=== PATIENT | female | born 1985 | race Caucasian/White ===

== ENCOUNTER 2020-01-07 18:48 | Inpatient (IN) | payer BC ==
[2020-01-07] MEDS ORDERED: Water For Irrigation,Sterile 1,000 ML Container IRR PRN (20:10)
[2020-01-07] MEDS ORDERED: Misoprostol 200 MCG Tab PO PRN (20:10)
[2020-01-07] MEDS ORDERED: Butorphanol 1 MG/ML SDV IVPUSH PRN (20:10)
[2020-01-07] MEDS ORDERED: Ondansetron 4 MG/2 ML SDV IVPUSH PRN (20:10)
[2020-01-07] MEDS ORDERED: Lidocaine 1% 50 ML MDV INJECT PRN (20:10)
[2020-01-07] MEDS ORDERED: Sodium Chloride 0.9% 10 ML SDV IV PRN (20:10)
[2020-01-07] MEDS ORDERED: Methylergonovine 0.2 MG/1 ML Amp IM PRN (20:10)
[2020-01-07] MEDS ORDERED: Carboprost Tromethamine 250 MCG/1 ML Amp IM PRN (20:10)
[2020-01-07] MEDS ORDERED: Tranexamic Acid 1,000 MG in Sodium Chloride 0.9% 100 ML IV PRN (20:10)
[2020-01-07] MEDS ORDERED: Terbutaline 1 MG/ML SDV SUBCUT PRN (20:10)
[2020-01-07] MEDS ORDERED: Nalbuphine 10 MG/1 ML Vial IVPUSH PRN (20:10)
[2020-01-07] MEDS ORDERED: Misoprostol 25 MCG (1/4 of 100 MCG) Tab VAG PRN ×2 (20:10)
[2020-01-07] MEDS ORDERED: Sodium Chloride 0.9% 10 ML Syringe FLUSH PRN (20:10)
[2020-01-07] MEDS ORDERED: Ampicillin 2 GM in Sodium Chloride 0.9% 100 ML IV ONE (20:10)
[2020-01-07] MEDS ORDERED: Sodium Chloride 0.9% 2.5 ML Syringe FLUSH PRN (20:10)
[2020-01-07] MEDS ORDERED: Oxytocin/0.9 % Sodium Chloride 30 UNIT/500 ML BAG IV SCH ×2 (20:15)
[2020-01-07] MEDS: Lactated Ringers 1,000 ML IV SCH (20:40)
[2020-01-08] MEDS: Ampicillin 1 GM in Sodium Chloride 0.9% 50 ML IV SCH ×5 (00:35→16:50)
--- NOTE | 2020-01-08 08:03 | PCM.PN ---
<Ni Del Valle - Last Filed: 01/08/20 08:27> - General Info Date of Service: 01/08/20 Functional Status: Reports: Pain Controlled - Review of Systems General: Reports: No Symptoms HEENT: Reports: No Symptoms Pulmonary: Reports: No Symptoms Cardiovascular: Reports: No Symptoms Gastrointestinal: Reports: No Symptoms Genitourinary: Reports: No Symptoms Musculoskeletal: Reports: No Symptoms Skin: Reports: No Symptoms Neurological: Reports: No Symptoms Psychiatric: Reports: No Symptoms - Patient Data Weight - Most Recent: 86.908 kg I&O - Last 24 Hours: Intake & Output 01/07/20 01/08/20 01/08/20 22:59 06:59 14:59 Intake Total 125 100 Balance 125 100 Lab Results Last 24 Hours: Laboratory Results - last 24 hr 01/07/20 01/07/20 01/07/20 Range/Units 19:45 19:45 19:45 WBC 11.63 H (4.0-11.0) K/uL RBC 3.79 L (4.30-5.90) M/uL Hgb 9.0 L (12.0-16.0) g/dL Hct 29.0 L (36.0-46.0) % MCV 76.5 L (80.0-98.0) fL MCH 23.7 L (27.0-32.0) pg MCHC 31.0 (31.0-37.0) g/dL RDW Std Deviation 45.0 (28.0-62.0) fl RDW Coeff of Jaen Claude 16 H (11.0-15.0) % Plt Count 325 (150-400) K/uL MPV 10.30 (7.40-12.00) fL Nucleated RBC % 0.0 /100WBC Nucleated RBCs # 0 K/uL COVID-19 ([facility]) NEGATIVE (NEGATIVE) Blood Type A POSITIVE Antibody Screen NEGATIVE Med Orders - Current: Current Medications Butorphanol Tartrate (Stadol) 1 mg IVPUSH Q1H PRN PRN Reason: Pain Carboprost Tromethamine (Hemabate Ds) 250 mcg IM ASDIRECTED PRN PRN Reason: Post Hemorrhage Oxytocin/Sodium Chloride (Oxytocin 30 Unit/500 Ml-Ns) 30 unit in 500 mls @ 999 mls/hr IV TITRATE ELINA Tranexamic Acid 1,000 mg/ (Sodium Chloride) 110 mls @ 660 mls/hr IV ONETIME PRN PRN Reason: Bleeding Oxytocin/Sodium Chloride (Oxytocin 30 Unit/500 Ml-Ns) 30 unit in 500 mls @ 2 mls/hr IV TITRATE [facility]; Protocol Last Titration: 01/08/20 07:50 Dose: 4 munits/min, 4 mls/hr Documented by: Lactated Ringer's (Ringers, Lactated) 1,000 mls @ 150 mls/hr IV ASDIRECTED [facility] Last Infusion: 01/08/20 04:35 Dose: 150 mls/hr Documented by: Ampicillin Sodium 1 gm/ Sodium (Chloride) 50 mls @ 100 mls/hr IV Q4H [facility] Last Admin: 01/08/20 04:35 Dose: 100 mls/hr Documented by: Lidocaine HCl (Xylocaine 1%) 50 ml INJECT ONETIME PRN PRN Reason: Laceration repair Methylergonovine Maleate (Methergine) 0.2 mg IM ASDIRECTED PRN PRN Reason: Post Hemorrhage Misoprostol (Cytotec) 200 mcg PO ONETIME PRN PRN Reason: Post Hemorrhage Misoprostol (Cytotec) 25 mcg VAG ONETIME PRN PRN Reason: Cervical Ripening Last Admin: 01/07/20 20:40 Dose: 25 mcg Documented by: Misoprostol (Cytotec) 25 mcg VAG Q4H PRN PRN Reason: Cervical Ripening Last Admin: 01/08/20 00:34 Dose: 25 mcg Documented by: Nalbuphine HCl (Nubain) 10 mg IVPUSH Q1H PRN PRN Reason: Pain (severe 7-10) Ondansetron HCl (Zofran) 4 mg IVPUSH Q4H PRN PRN Reason: Nausea/Vomiting Sodium Chloride (Saline Flush) 10 ml FLUSH ASDIRECTED PRN PRN Reason: Keep Vein Open Sodium Chloride (Saline Flush) 2.5 ml FLUSH ASDIRECTED PRN PRN Reason: Keep Vein Open Sodium Chloride (Normal Saline) 10 ml IV ASDIRECTED PRN PRN Reason: IV Use Sterile Water (Sterile Water For Irrigation) 1,000 ml IRR ASDIRECTED PRN PRN Reason: delivery Terbutaline Sulfate (Brethine) 0.25 mg SUBCUT ASDIRECTED PRN PRN Reason: Tacysystole Discontinued Medications Ampicillin Sodium 2 gm/ Sodium (Chloride) 100 mls @ 200 mls/hr IV ONETIME ONE Stop: 01/07/20 20:39 Last Admin: 01/07/20 20:40 Dose: 200 mls/hr Documented by: - Exam General: Alert, Oriented, Cooperative HEENT: Pupils Equal, Mucous Membr. Moist/[place] Lungs: Clear to Auscultation, Normal Respiratory Effort Cardiovascular: Regular Rate, Regular Rhythm, No Murmurs GI/Abdominal Exam: No Organomegaly, No Abnormal Bruit (Female) Exam: Deferred Extremities: Normal Capillary Refill Peripheral Pulses: 2+: Radial (L), Radial (R), Posterior Tibial (L), Posterior Tibial (R), Dorsalis Pedis (L), Dorsalis Pedis (R) Skin: Warm, Intact Neurological: No New Focal Deficit Psy/Mental Status: Alert, Normal Affect, Normal Mood Physical Findings Comments:: Patient did receive Ampicillin for GBS and was started on Cytotec last night. Oxytocin was started this AM. Patient is making progress. At 5 AM this morning, she was 3 cm dilated, 80% effaced with fetus at -2 station. heart tones have been at the 140s-150s. No variable or late decelerations noted. Sepsis Event Note - Evaluation Sepsis Screening Result: No Definite Risk - Plan Plan:: Continue oxytocin Continue to monitor labor progression Patient was seen and evaluated by medical student (NI DEL VALLE). I appreciate the opportunity to be involved in the care of this patient. <Neda Menezes - Last Filed: 01/08/20 09:59> - Patient Data I&O - Last 24 Hours: Intake & Output 01/07/20 01/08/20 01/08/20 22:59 06:59 14:59 Intake Total 125 100 Balance 125 100 Lab Results Last 24 Hours: Laboratory Results - last 24 hr 01/07/20 01/07/20 01/07/20 Range/Units 19:45 19:45 19:45 WBC 11.63 H (4.0-11.0) K/uL RBC 3.79 L (4.30-5.90) M/uL Hgb 9.0 L (12.0-16.0) g/dL Hct 29.0 L (36.0-46.0) % MCV 76.5 L (80.0-98.0) fL MCH 23.7 L (27.0-32.0) pg MCHC 31.0 (31.0-37.0) g/dL RDW Std Deviation 45.0 (28.0-62.0) fl RDW Coeff of Jean Claude 16 H (11.0-15.0) % Plt Count 325 (150-400) K/uL MPV 10.30 (7.40-12.00) fL Nucleated RBC % 0.0 /100WBC Nucleated RBCs # 0 K/uL COVID-19 ([facility]) NEGATIVE (NEGATIVE) Blood Type A POSITIVE Antibody Screen NEGATIVE Med Orders - Current: Current Medications Butorphanol Tartrate (Stadol) 1 mg IVPUSH Q1H PRN PRN Reason: Pain Carboprost Tromethamine (Hemabate Ds) 250 mcg IM ASDIRECTED PRN PRN Reason: Post Hemorrhage Oxytocin/Sodium Chloride (Oxytocin 30 Unit/500 Ml-Ns) 30 unit in 500 mls @ 999 mls/hr IV TITRATE ELINA Tranexamic Acid 1,000 mg/ (Sodium Chloride) 110 mls @ 660 mls/hr IV ONETIME PRN PRN Reason: Bleeding Oxytocin/Sodium Chloride (Oxytocin 30 Unit/500 Ml-Ns) 30 unit in 500 mls @ 2 mls/hr IV TITRATE ELINA; Protocol Last Titration: 01/08/20 08:50 Dose: 6 munits/min, 6 mls/hr Documented by: Lactated Ringer's (Ringers, Lactated) 1,000 mls @ 150 mls/hr IV ASDIRECTED ELINA Last Infusion: 01/08/20 04:35 Dose: 150 mls/hr Documented by: Ampicillin Sodium 1 gm/ Sodium (Chloride) 50 mls @ 100 mls/hr IV Q4H ELINA Last Admin: 01/08/20 08:45 Dose: 100 mls/hr Documented by: Lidocaine HCl (Xylocaine 1%) 50 ml INJECT ONETIME PRN PRN Reason: Laceration repair Methylergonovine Maleate (Methergine) 0.2 mg IM ASDIRECTED PRN PRN Reason: Post Hemorrhage Misoprostol (Cytotec) 200 mcg PO ONETIME PRN PRN Reason: Post Hemorrhage Misoprostol (Cytotec) 25 mcg VAG ONETIME PRN PRN Reason: Cervical Ripening Last Admin: 01/07/20 20:40 Dose: 25 mcg Documented by: Misoprostol (Cytotec) 25 mcg VAG Q4H PRN PRN Reason: Cervical Ripening Last Admin: 01/08/20 00:34 Dose: 25 mcg Documented by: Nalbuphine HCl (Nubain) 10 mg IVPUSH Q1H PRN PRN Reason: Pain (severe 7-10) Ondansetron HCl (Zofran) 4 mg IVPUSH Q4H PRN PRN Reason: Nausea/Vomiting Sodium Chloride (Saline Flush) 10 ml FLUSH ASDIRECTED PRN PRN Reason: Keep Vein Open Sodium Chloride (Saline Flush) 2.5 ml FLUSH ASDIRECTED PRN PRN Reason: Keep Vein Open Sodium Chloride (Normal Saline) 10 ml IV ASDIRECTED PRN PRN Reason: IV Use Sterile Water (Sterile Water For Irrigation) 1,000 ml IRR ASDIRECTED PRN PRN Reason: delivery Terbutaline Sulfate (Brethine) 0.25 mg SUBCUT ASDIRECTED PRN PRN Reason: Tacysystole Discontinued Medications Ampicillin Sodium 2 gm/ Sodium (Chloride) 100 mls @ 200 mls/hr IV ONETIME ONE Stop: 01/07/20 20:39 Last Admin: 01/07/20 20:40 Dose: 200 mls/hr Documented by: - Problem List Review Problem List Initiated/Reviewed/Updated: Yes - My Orders Last 24 Hours: My Active Orders 01/07/20 Dinner Clear Liquid Diet [DIET] 01/07/20 19:45 RPR (SYPHILIS SERO) W/ RFLX [REF] Routine 01/07/20 20:10 Patient Status [ADT] Routine Bedrest Bathroom Privileges [RC] ASDIRECTED Bedrest Bathroom Privileges [RC] ASDIRECTED Communication Order [RC] ASDIRECTED Communication Order [RC] ASDIRECTED Communication Order [RC] ASDIRECTED Heart Tones [RC] CONTINUOUS Non Stress Test [RC] PER UNIT ROUTINE May Shower [RC] ASDIRECTED Notify Provider [RC] PRN Notify Provider [RC] PRN Notify Provider [RC] PRN Notify Provider [RC] STAT Oxygen Therapy [RC] ASDIRECTED Vaginal Exam [RC] PRN Vaginal Exam [RC] PRN Vital Signs [RC] PER UNIT ROUTINE Vital Signs [RC] PER UNIT ROUTINE Butorphanol [Stadol] 1 mg IVPUSH Q1H PRN Carboprost Tromethamine [Hemabate DS] 250 mcg IM ASDIRECTED PRN Lidocaine 1% [Xylocaine 1%] 50 ml INJECT ONETIME PRN Methylergonovine [Methergine] 0.2 mg IM ASDIRECTED PRN Nalbuphine [Nubain] 10 mg IVPUSH Q1H PRN Ondansetron [Zofran] 4 mg IVPUSH Q4H PRN Sodium Chloride 0.9% [Normal Saline] 10 ml IV ASDIRECTED PRN Sodium Chloride 0.9% [Saline Flush] 10 ml FLUSH ASDIRECTED PRN Sodium Chloride 0.9% [Saline Flush] 2.5 ml FLUSH ASDIRECTED PRN Terbutaline [Brethine] 0.25 mg SUBCUT ASDIRECTED PRN Tranexamic Acid [Cyklokapron] 1,000 mg Sodium Chloride 0.9% [Normal Saline] 100 ml IV ONETIME Water For Irrigation,Sterile [Sterile Water for Irrigation] 1,000 ml IRR ASDIRECTED PRN miSOPROStoL [Cytotec] 200 mcg PO ONETIME PRN miSOPROStoL [Cytotec] 25 mcg VAG ONETIME PRN miSOPROStoL [Cytotec] 25 mcg VAG Q4H PRN Scalp Electrode [WOMSER] Per Unit Routine Peripheral IV Insertion Adult [OM.PC] Routine Resuscitation Status Routine 01/07/20 20:15 Lactated Ringers [Ringers, Lactated] 1,000 ml IV ASDIRECTED Oxytocin/0.9 % Sodium Chloride [Oxytocin 30 Unit/500 ML-NS] 30 unit in 500 ml IV TITRATE Oxytocin/0.9 % Sodium Chloride [Oxytocin 30 Unit/500 ML-NS] 30 unit in 500 ml IV TITRATE Medication Administration Instruction [OM.PC] Q3H
[2020-01-08] MEDS ORDERED: Bupivicaine/fentaNYL/NS 250 ML ONE (10:14)
[2020-01-08] MEDS: Lactated Ringers 1,000 ML IV SCH ×2 (10:35→11:33)
[2020-01-08] MEDS ORDERED: ePHEDrine 50 MG/ML SDV ONE ×2 (10:53→18:27)
[2020-01-08] MEDS ORDERED: Sodium Chloride 0.9% 20 ML ONE ×2 (10:53→17:45)
--- NOTE | 2020-01-08 11:11 | PCM.PREANE ---
Preanesthetic Assessment - Anesthesia/Transfusion/Family Hx Anesthesia History: No Prior Anesthesia Family History of Anesthesia Reaction: No Transfusion History: No Prior Transfusion(s) Additional History: Patient states she has Raynauds because her fingers are always blue but she has never been diagnosed with it. - Review of Systems General: No Symptoms Pulmonary: No Symptoms Cardiovascular: No Symptoms Gastrointestinal: No Symptoms Neurological: No Symptoms Other: Reports: None - Physical Assessment Height: 1.65 m Weight: 86.908 kg ASA Class: 2 Mental Status: Alert & Oriented x3 Dentition: Reports: Normal Dentition ROM/Head Extension: Full - Lab Values: Laboratory Last Values WBC 11.63 K/uL (4.0-11.0) H 01/07/20 19:45 RBC 3.79 M/uL (4.30-5.90) L 01/07/20 19:45 Hgb 9.0 g/dL (12.0-16.0) L 01/07/20 19:45 Hct 29.0 % (36.0-46.0) L 01/07/20 19:45 MCV 76.5 fL (80.0-98.0) L 01/07/20 19:45 MCH 23.7 pg (27.0-32.0) L 01/07/20 19:45 MCHC 31.0 g/dL (31.0-37.0) 01/07/20 19:45 RDW Std Deviation 45.0 fl (28.0-62.0) 01/07/20 19:45 RDW Coeff of Jean Claude 16 % (11.0-15.0) H 01/07/20 19:45 Plt Count 325 K/uL (150-400) 01/07/20 19:45 MPV 10.30 fL (7.40-12.00) 01/07/20 19:45 Nucleated RBC % 0.0 /100WBC 01/07/20 19:45 Nucleated RBCs # 0 K/uL 01/07/20 19:45 COVID-19 ([facility]) NEGATIVE (NEGATIVE) 01/07/20 19:45 Blood Type A POSITIVE 01/07/20 19:45 Antibody Screen NEGATIVE 01/07/20 19:45 - Allergies Allergies/Adverse Reactions: Allergies Allergy/AdvReac Type Severity Reaction Status Date / Time No Known Allergies Allergy Verified 11/05/15 21:19 - Acknowledgements Anesthesia Type Planned: Epidural Pt an Appropriate Candidate for the Planned Anesthesia: Yes Alternatives and Risks of Anesthesia Discussed w Pt/Guardian: Yes Pt/Guardian Understands and Agrees with Anesthesia Plan: Yes PreAnesthesia Questionnaire - Past Health History Medical/Surgical History: Denies Medical/Surgical History ACUPRESSURE THERAPIST History: Reports: , Other (See Below) Other OB/BYN History: Hx of 28 week Intrauterine Demise Neurological History: Reports: Migraines Other Neuro History: Last Migraine one month ago- took tylenol, before pregancy occasional migraine controlled with Excedrine Migraine - Past Surgical History Neurological Surgical History: Reports: None - SUBSTANCE USE Smoking Status *Q: Never Smoker Tobacco Use Within Last Twelve Months: No Recreational Drug Use History: No - HOME MEDS Home Medications: Home Meds Pnv No.95/Ferrous Fum/Folic AC [ Tablet] 1 each PO DAILY 01/07/20 [History] - CURRENT (IN HOUSE) MEDS Current Meds: Current Medications Butorphanol Tartrate (Stadol) 1 mg IVPUSH Q1H PRN PRN Reason: Pain Last Admin: 01/08/20 10:00 Dose: 1 mg Documented by: Carboprost Tromethamine (Hemabate Ds) 250 mcg IM ASDIRECTED PRN PRN Reason: Post Hemorrhage Oxytocin/Sodium Chloride (Oxytocin 30 Unit/500 Ml-Ns) 30 unit in 500 mls @ 999 mls/hr IV TITRATE ELINA Tranexamic Acid 1,000 mg/ (Sodium Chloride) 110 mls @ 660 mls/hr IV ONETIME PRN PRN Reason: Bleeding Oxytocin/Sodium Chloride (Oxytocin 30 Unit/500 Ml-Ns) 30 unit in 500 mls @ 2 mls/hr IV TITRATE ELINA; Protocol Last Titration: 01/08/20 08:50 Dose: 6 munits/min, 6 mls/hr Documented by: Lactated Ringer's (Ringers, Lactated) 1,000 mls @ 150 mls/hr IV ASDIRECTED ELINA Last Admin: 01/08/20 10:35 Dose: 150 mls/hr Documented by: Ampicillin Sodium 1 gm/ Sodium (Chloride) 50 mls @ 100 mls/hr IV Q4H ELINA Last Admin: 01/08/20 08:45 Dose: 100 mls/hr Documented by: Lidocaine HCl (Xylocaine 1%) 50 ml INJECT ONETIME PRN PRN Reason: Laceration repair Methylergonovine Maleate (Methergine) 0.2 mg IM ASDIRECTED PRN PRN Reason: Post Hemorrhage Misoprostol (Cytotec) 200 mcg PO ONETIME PRN PRN Reason: Post Hemorrhage Misoprostol (Cytotec) 25 mcg VAG ONETIME PRN PRN Reason: Cervical Ripening Last Admin: 01/07/20 20:40 Dose: 25 mcg Documented by: Misoprostol (Cytotec) 25 mcg VAG Q4H PRN PRN Reason: Cervical Ripening Last Admin: 01/08/20 00:34 Dose: 25 mcg Documented by: Nalbuphine HCl (Nubain) 10 mg IVPUSH Q1H PRN PRN Reason: Pain (severe 7-10) Ondansetron HCl (Zofran) 4 mg IVPUSH Q4H PRN PRN Reason: Nausea/Vomiting Sodium Chloride (Saline Flush) 10 ml FLUSH ASDIRECTED PRN PRN Reason: Keep Vein Open Sodium Chloride (Saline Flush) 2.5 ml FLUSH ASDIRECTED PRN PRN Reason: Keep Vein Open Sodium Chloride (Normal Saline) 10 ml IV ASDIRECTED PRN PRN Reason: IV Use Sterile Water (Sterile Water For Irrigation) 1,000 ml IRR ASDIRECTED PRN PRN Reason: delivery Terbutaline Sulfate (Brethine) 0.25 mg SUBCUT ASDIRECTED PRN PRN Reason: Tacysystole Discontinued Medications Ephedrine Sulfate (Ephedrine Sulfate) Confirm Administered Dose 50 mg .ROUTE .STK-MED ONE Stop: 01/08/20 10:54 Ampicillin Sodium 2 gm/ Sodium (Chloride) 100 mls @ 200 mls/hr IV ONETIME ONE Stop: 01/07/20 20:39 Last Admin: 01/07/20 20:40 Dose: 200 mls/hr Documented by: Fentanyl/Bupivacaine HCl (Fentanyl/Bupivacaine/Ns 2 Mcg-0.125% 250 Ml) Confirm Administered Dose 250 mls @ as directed .ROUTE .STK-MED ONE Stop: 01/08/20 10:15 Sodium Chloride (Normal Saline) Confirm Administered Dose 20 mls @ as directed .ROUTE .STK-MED ONE Stop: 01/08/20 10:54
[2020-01-08] MEDS ORDERED: ceFAZolin 2 GM in Premix Bag 1 BAG IV ONE (17:33)
[2020-01-08] MEDS ORDERED: Citric Acid/Sodium Citrate Solution 30 ML Cup PO ONE (17:33)
[2020-01-08] MEDS ORDERED: Ondansetron 4 MG/2 ML SDV ONE (17:41)
[2020-01-08] MEDS ORDERED: Oxytocin 10 Units/1 ML SDV ONE (17:45)
[2020-01-08] MEDS ORDERED: Morphine PF 10 MG/10 ML SDV ONE (18:02)
[2020-01-08] MEDS ORDERED: Nalbuphine 10 MG/1 ML Vial IVPUSH PRN (18:30)
[2020-01-08] MEDS ORDERED: fentaNYL 100 MCG/2 ML SDV IVPUSH PRN (18:30)
[2020-01-08] MEDS ORDERED: Acetaminophen/oxyCODONE 325-5 MG Tab PO PRN ×2 (18:30→19:02)
--- NOTE | 2020-01-08 19:00 | PCM.OPNOTE ---
- General Post-Op/Procedure Note Date of Surgery/Procedure: 01/08/20 Operative Procedure(s): Primary LTCS Findings: Viable female AGPARS 8, 9 weight 7 lb 9 oz. Delivery intact placenta with 3V cord Pre Op Diagnosis: 39 weeks IUP. Arrest of descent Post-Op Diagnosis: Same Anesthesia Technique: Epidural Primary Surgeon: Neda Menezes Mushroom Packer: Alonzo Del Valle Fluid Replacement, Intraop: 800 EBL in mLs: 600 Complications: None known Condition: Stable Free Text/Narrative:: Intake & Output 01/08/20 01/08/20 01/08/20 06:59 14:59 22:59 Intake Total 100 Balance 100
[2020-01-08] MEDS ORDERED: diphenhydrAMINE 50 MG/ML SDV IVPUSH PRN (19:02)
[2020-01-08] MEDS ORDERED: Oxytocin 10 Units/1 ML SDV IM PRN (19:02)
[2020-01-08] MEDS ORDERED: Bisacodyl 10 MG Supp RECTAL PRN (19:02)
[2020-01-08] MEDS ORDERED: Lanolin 100% Cream 7 GM Tube TOP PRN (19:02)
[2020-01-08] MEDS ORDERED: Tranexamic Acid 1,000 MG in Sodium Chloride 0.9% 100 ML IV PRN (19:02)
[2020-01-08] MEDS ORDERED: Misoprostol 200 MCG Tab RECTAL PRN (19:02)
[2020-01-08] MEDS ORDERED: Methylergonovine 0.2 MG/1 ML Amp IM PRN (19:02)
[2020-01-08] MEDS ORDERED: Ondansetron 4 MG/2 ML SDV IVPUSH PRN (19:02)
[2020-01-08] MEDS ORDERED: Lactated Ringers 1,000 ML IV SCH (19:15)
[2020-01-08] MEDS ORDERED: ceFAZolin 1 GM Vial ONE (19:20)
--- NOTE | 2020-01-08 19:38 | PCM.POSTAN ---
POST ANESTHESIA ASSESSMENT - MENTAL STATUS Mental Status: Alert, Oriented - RESPIRATORY Respiratory Status: Respiratory Rate WNL, Airway Patent, O2 Saturation Stable - CARDIOVASCULAR CV Status: Pulse Rate WNL, Blood Pressure Stable - GASTROINTESTINAL GI Status: No Symptoms - PAIN Pain Score: 0 - POST OP HYDRATION Hydration Status: Adequate & Stable - OBSERVATIONS Free Text/Narrative:: Patient states pain is a zero unless they are rubbing on her uterus
[2020-01-08] MEDS: Docusate Sodium 100 MG Cap PO SCH (20:59)
--- NOTE | 2020-01-08 21:44 | OR ---
SURGEON: Neda Menezes M.D. DATE OF PROCEDURE: 01/08/2020 PREOPERATIVE DIAGNOSES: 1. A 39-week intrauterine . 2. Arrest of descent. POSTOPERATIVE DIAGNOSES: 1. A 39-week intrauterine . 2. Arrest of descent. PROCEDURE: Primary low transverse section. PRIMARY SURGEON: Neda Menezes MD COIL SPRING ASSEMBLER: Alonzo Smith, MS4 ANESTHESIA: Epidural. ESTIMATED BLOOD LOSS: 600 mL. FLUIDS: 800 mL of crystalloid in the OR. FINDINGS: Viable female, score of 8 at one minute and 9 at five minutes, weight of 7 pounds 9 ounces. Delivery, intact placenta, 3-vessel cord. Normal-appearing pelvis. DISPOSITION: to nursery, mom in LDRP, stable. PROCEDURE DETAILS: Mel is a 34-year-old, G2, P 0-1-0-0, at 39 weeks' gestational age, who presented for a scheduled induction of labor due to advanced maternal age and history of a 28-week demise. Risks of induction have been discussed with her. She responded nicely to Cytotec ripening. The following day, she was found to be 3 cm and initiated on Pitocin augmentation. She is group B beta strep positive and received ampicillin prophylaxis. Shortly after 8 a.m. on the morning of 01/08/2020, she underwent amniotomy, clear fluid was returned. She began to progress more rapidly thereafter and was found to be approximately 6 cm within 2 hours. Underwent regional anesthesia in the form of epidural, became more comfortable. Shortly before 1 p.m. was found to be complete, 100% effaced, minus 1 station. She was allowed to continue to labor over the next 1 to 2 hours. At that time, began pushing efforts and initially pushed readily to a 0 station, but thereafter made no further progress. She spent another hour and a half, almost 2 hours, pushing with no progress past the 0 station. At that time, I assessed the patient, she seems to have adequate pushing efforts and fetus in OA position, but there was just no descent. Therefore, discussion with Mel and her significant other including proceeding with a delivery for arrest of descent. They are in agreement with proceeding with delivery. Risks of procedure have been discussed with her including infection; bleeding; possible trauma to the surrounding bowel, bladder, ureters; in case of excessive blood loss, need for blood product transfusion; in rare lifesaving circumstances, need for hysterectomy; risk for thromboembolic event; risk of anesthesia. Proper consent obtained. The patient was taken to the operating room where she underwent dosing of her epidural, was placed in dorsal supine position with leftward tilt. SCDs to lower extremity, [place] to gravity. Was prepped and draped in usual sterile fashion. Anesthesia was tested, found to be adequate. She received Ancef prophylactically. Time-out was performed. A Pfannenstiel skin incision was now created, carried down to level of the rectus fascia, which was incised in midline, lateralized on either side sharply and bluntly. Superior aspect of the fascia was tented upward, dissected sharply and bluntly away from underlying muscle. In a similar aspect, this performed with the inferior aspect of the fascia. Rectus muscles were now in midline. Peritoneum was entered. Rectus muscles and peritoneum were now lateralized. Uterine position, position palpated. Self-retaining retractor now gently placed. Uterovesical reflection was visualized. Bladder flap was created sharply and bluntly. Bladder was mobilized away from lower uterine segment. Low transverse hysterotomy was now performed. Uterine cavity was entered with blunt-ended scalpel. Hysterotomy was lateralized bluntly. Infant's head was flexed and delivered from the pelvis. Fundal pressure was applied. The head was delivered followed by anterior shoulder, posterior shoulder, and remainder of the body without difficulty. A loose nuchal cord x1 was reduced manually. 's oropharynx and nares were bulb suctioned. Cord was clamped x2 and cut. Infant was handed off to attending medical technicians and nursery staff. Cord arterial, cord venous, cord blood sampling was obtained. The placenta was now delivered. Uterine cavity was cleared of all clot and debris. Hysterotomy was repaired using 3-0 Vicryl in continuous running locked fashion followed by re-imbricating layer. Area of extension was also repaired along the inferior lip of the lower uterine segment with a 0 Vicryl in continuous running locked fashion. Posterior aspect of the uterus was inspected. No defects or hematoma was to found be forming. Region was well irrigated, suction dried. Colonic gutters were cleared of all clot and debris, well irrigated, suction dried. Hysterotomy once again inspected, found to be hemostatic. Self-retaining retractor was gently removed. Bladder blade retractor was now placed and hysterotomy once again inspected. Any areas of serosal oozing were cauterized. Hysterotomy once again inspected, found to be hemostatic. Rectus muscles and peritoneum were now reapproximated using 0 Vicryl with inverted mattress suture technique. Anterior aspect of the muscle, posterior aspect of the fascia closely inspected. Any areas of oozing were cauterized. The fascia was reapproximated using 0 Vicryl in continuous running fashion, beginning laterally on either side and meeting in the midline. Subcutaneous tissue was well irrigated, suction dried. Any areas of oozing were cauterized. Skin edges were reapproximated using 3-0 Vicryl in subcuticular fashion on a Chi needle. Half-inch Steri-Strips and Mastisol were now placed. Uterus remained firm. Sponge, instrument, and needle count was correct x2. The patient tolerated the procedure well overall. She will go to LDRP in stable condition, infant to nursery. GLADYS / BOBBY /[id number] ARNALDO
[2020-01-09] MEDS: Simethicone 80 MG Tab.Chew PO SCH ×5 (00:24→23:32)
[2020-01-09] MEDS: Ketorolac 30 MG/ML SDV IVPUSH SCH ×4 (01:08→21:29)
--- NOTE | 2020-01-09 06:50 | PCM.PNPP ---
<Alonzo Del Valle - Last Filed: 01/09/20 06:44> - General Info Date of Service: 01/09/20 Functional Status: Reports: Pain Controlled, Ambulating - Review of Systems General: Reports: No Symptoms HEENT: Reports: No Symptoms Pulmonary: Reports: No Symptoms Cardiovascular: Reports: No Symptoms Gastrointestinal: Reports: No Symptoms Genitourinary: Reports: No Symptoms Musculoskeletal: Reports: No Symptoms Skin: Reports: No Symptoms Neurological: Reports: No Symptoms Psychiatric: Reports: No Symptoms - General Info Date of Service: 01/09/20 - Patient Data Vital Signs - Most Recent: Last Vital Signs Temp 36.8 C 01/09/20 04:03 Pulse 102 H 01/09/20 06:00 Resp 15 01/09/20 06:00 BP 98/47 L 01/09/20 04:03 Pulse Ox 97 01/09/20 06:00 Weight - Most Recent: 86.908 kg I&O - Last 24 Hours: Intake & Output 01/08/20 01/08/20 01/09/20 14:59 22:59 06:59 Intake Total 800 1000 Output Total 350 Balance 800 650 Lab Results - Last 24 Hours: Laboratory Results - last 24 hr 01/08/20 01/09/20 Range/Units 18:02 05:48 WBC 14.80 H (4.0-11.0) K/uL RBC 2.74 L (4.30-5.90) M/uL Hgb 6.4 L (12.0-16.0) g/dL Hct 21.1 L (36.0-46.0) % MCV 77.0 L (80.0-98.0) fL MCH 23.4 L (27.0-32.0) pg MCHC 30.3 L (31.0-37.0) g/dL RDW Std Deviation 46.5 (28.0-62.0) fl RDW Coeff of Jean Claude 17 H (11.0-15.0) % Plt Count 257 (150-400) K/uL MPV 9.70 (7.40-12.00) fL Nucleated RBC % 0.0 /100WBC Nucleated RBCs # 0 K/uL Cord ABG pH 7.207 (7.18-7.38) Cord ABG Base Excess -7 (-10--2) Cord VBG pH 7.268 (7.25-7.45) Cord VBG Base Excess -6 (-10--2) Med Orders - Current: Current Medications Bisacodyl (Dulcolax) 10 mg RECTAL ONETIME PRN PRN Reason: Constipation Carboprost Tromethamine (Hemabate Ds) 250 mcg IM ASDIRECTED PRN PRN Reason: Post Hemorrhage Diphenhydramine HCl (Benadryl) 25 mg IVPUSH Q6H PRN PRN Reason: Itching or Nausea Docusate Sodium (Colace) 100 mg PO BID [facility] Last Admin: 01/08/20 20:59 Dose: 100 mg Documented by: Emollient Ointment (Lansinoh Hpa) 0 gm TOP ASDIRECTED PRN PRN Reason: Sore Nipples Fentanyl (Sublimaze) 50 mcg IVPUSH Q5M PRN PRN Reason: Pain (severe 7-10) Stop: 01/09/20 18:30 Oxytocin/Sodium Chloride (Oxytocin 30 Unit/500 Ml-Ns) 30 unit in 500 mls @ 999 mls/hr IV TITRATE [facility] Tranexamic Acid 1,000 mg/ (Sodium Chloride) 110 mls @ 660 mls/hr IV ONETIME PRN PRN Reason: Bleeding Oxytocin/Sodium Chloride (Oxytocin 30 Unit/500 Ml-Ns) 30 unit in 500 mls @ 2 mls/hr IV TITRATE [facility]; Protocol Last Titration: 01/08/20 15:54 Dose: 10 munits/min, 10 mls/hr Documented by: Lactated Ringer's (Ringers, Lactated) 1,000 mls @ 150 mls/hr IV ASDIRECTED [facility] Last Admin: 01/08/20 11:33 Dose: 150 mls/hr Documented by: Lactated Ringer's (Ringers, Lactated) 1,000 mls @ 125 mls/hr IV ASDIRECTED [facility] Last Admin: 01/08/20 20:54 Dose: 125 mls/hr Documented by: Tranexamic Acid 1,000 mg/ (Sodium Chloride) 110 mls @ 660 mls/hr IV ONETIME PRN PRN Reason: Bleeding Ibuprofen (Motrin) 800 mg PO Q8H PRN PRN Reason: mild pain or fever Ketorolac Tromethamine (Toradol) 30 mg IVPUSH Q6H [facility] Stop: 01/09/20 19:01 Last Admin: 01/09/20 01:08 Dose: 30 mg Documented by: Methylergonovine Maleate (Methergine) 0.2 mg IM ASDIRECTED PRN PRN Reason: Post Hemorrhage Methylergonovine Maleate (Methergine) 0.2 mg IM ONETIME PRN PRN Reason: Excessive Vaginal Bleeding Misoprostol (Cytotec) 1,000 mcg RECTAL ONETIME PRN PRN Reason: excessive bleeding Nalbuphine HCl (Nubain) 2.5 mg IVPUSH Q3H PRN PRN Reason: Pruritis Stop: 01/09/20 18:30 Ondansetron HCl (Zofran) 4 mg IVPUSH Q4H PRN PRN Reason: Nausea/Vomiting Ondansetron HCl (Zofran) 4 mg IVPUSH Q4H PRN PRN Reason: Nausea/Vomiting Oxycodone/Acetaminophen (Percocet 325-5 Mg) 1 tab PO ONETIME PRN PRN Reason: Pain (moderate 4-6) Oxycodone/Acetaminophen (Percocet 325-5 Mg) 1 tab PO Q4H PRN PRN Reason: Pain (moderate 4-6) Oxycodone/Acetaminophen (Percocet 325-5 Mg) 2 tab PO Q4H PRN PRN Reason: Pain (moderate 4-6) Oxytocin (Pitocin) 10 unit IM ASDIRECTED PRN PRN Reason: Excessive Vaginal Bleeding Simethicone (Simethicone) 160 mg PO QID [facility] Last Admin: 01/09/20 06:12 Dose: 160 mg Documented by: Sodium Chloride (Normal Saline) 10 ml IV ASDIRECTED PRN PRN Reason: IV Use Sterile Water (Sterile Water For Irrigation) 1,000 ml IRR ASDIRECTED PRN PRN Reason: delivery Terbutaline Sulfate (Brethine) 0.25 mg SUBCUT ASDIRECTED PRN PRN Reason: Tacysystole Discontinued Medications Butorphanol Tartrate (Stadol) 1 mg IVPUSH Q1H PRN PRN Reason: Pain Last Admin: 01/08/20 10:00 Dose: 1 mg Documented by: Cefazolin Sodium (Ancef) Confirm Administered Dose 2 gm .ROUTE .STK-MED ONE Stop: 01/08/20 19:21 Citric Acid/Sodium Citrate (Bicitra Solution) 30 ml PO ONETIME ONE Stop: 01/08/20 17:34 Last Admin: 01/08/20 21:52 Dose: Not Given Documented by: Ephedrine Sulfate (Ephedrine Sulfate) Confirm Administered Dose 50 mg .ROUTE .STK-MED ONE Stop: 01/08/20 10:54 Ephedrine Sulfate (Ephedrine Sulfate) Confirm Administered Dose 50 mg .ROUTE .STK-MED ONE Stop: 01/08/20 18:28 Ampicillin Sodium 2 gm/ Sodium (Chloride) 100 mls @ 200 mls/hr IV ONETIME ONE Stop: 01/07/20 20:39 Last Admin: 01/07/20 20:40 Dose: 200 mls/hr Documented by: Ampicillin Sodium 1 gm/ Sodium (Chloride) 50 mls @ 100 mls/hr IV Q4H [facility] Last Admin: 01/08/20 16:50 Dose: 100 mls/hr Documented by: Fentanyl/Bupivacaine HCl (Fentanyl/Bupivacaine/Ns 2 Mcg-0.125% 250 Ml) Confirm Administered Dose 250 mls @ as directed .ROUTE .ST-MED ONE Stop: 01/08/20 10:15 Last Admin: 01/08/20 21:52 Dose: Not Given Documented by: Sodium Chloride (Normal Saline) Confirm Administered Dose 20 mls @ as directed .ROUTE .STK-MED ONE Stop: 01/08/20 10:54 Cefazolin Sodium/Dextrose 2 gm (/ Premix) 50 mls @ 100 mls/hr IV ONETIME ONE Stop: 01/08/20 18:02 Last Admin: 01/08/20 21:52 Dose: Not Given Documented by: Sodium Chloride (Normal Saline) Confirm Administered Dose 20 mls @ as directed .ROUTE .STK-MED ONE Stop: 01/08/20 17:46 Acetaminophen (Ofirmev) Confirm Administered Dose 100 mls @ as directed .ROUTE .STK-MED ONE Stop: 01/08/20 19:03 Lidocaine HCl (Xylocaine 1%) 50 ml INJECT ONETIME PRN PRN Reason: Laceration repair Misoprostol (Cytotec) 200 mcg PO ONETIME PRN PRN Reason: Post Hemorrhage Misoprostol (Cytotec) 25 mcg VAG ONETIME PRN PRN Reason: Cervical Ripening Last Admin: 01/07/20 20:40 Dose: 25 mcg Documented by: Misoprostol (Cytotec) 25 mcg VAG Q4H PRN PRN Reason: Cervical Ripening Last Admin: 01/08/20 00:34 Dose: 25 mcg Documented by: Morphine Sulfate (Duramorph Pf) Confirm Administered Dose 10 mg .ROUTE .STK-MED ONE Stop: 01/08/20 18:03 Nalbuphine HCl (Nubain) 10 mg IVPUSH Q1H PRN PRN Reason: Pain (severe 7-10) Ondansetron HCl (Zofran) Confirm Administered Dose 4 mg .ROUTE .STK-MED ONE Stop: 01/08/20 17:42 Oxytocin (Pitocin) Confirm Administered Dose 20 unit .ROUTE .STK-MED ONE Stop: 01/08/20 17:46 Sodium Chloride (Saline Flush) 10 ml FLUSH ASDIRECTED PRN PRN Reason: Keep Vein Open Sodium Chloride (Saline Flush) 2.5 ml FLUSH ASDIRECTED PRN PRN Reason: Keep Vein Open - Infant Interaction Infant Disposition, : to Nursery Infant Feeding: Bottle Fed Support Person: , Significant Other - Recovery Exam Fundal Tone: Firm Fundal Level: 1 Fingerbreadths Below Umbilicus Fundal Placement: Midline Lochia Amount: Scant Lochia Color: Rubra/Red Perineum Description: Intact, Minimal Bruising/Swelling Episiotomy/Laceration: None Bladder Status: Indwelling Catheter in Place Urinary Elimination: Indwelling Catheter - Exam General: Alert, Oriented, Cooperative, No Acute Distress HEENT: Pupils Equal, Mucous Membr. Moist/Hector Neck: Supple, Trachea Midline, No JVD, No Thyromegaly Lungs: Clear to Auscultation, Normal Respiratory Effort Cardiovascular: Regular Rate, Regular Rhythm, No Murmurs GI/Abdominal Exam: Normal Bowel Sounds, Soft, Non-Tender, No Organomegaly, No Abnormal Bruit Extremities: Normal Capillary Refill, Pedal Edema Skin: Warm, Intact Wound/Incisions: Healing Well, Dressing Dry and Intact Neurological: No New Focal Deficit Psy/Mental Status: Alert, Normal Affect, Normal Mood Physical Findings Comment:: Patient has mild B/L leg edema. Has ambulated in the hallway but hasn't had flatus or a BM. Mild pain to palpation of her incision site. Incision is dry with very minimal drainage. Hasn't been able to breastfeed because her milk isn't coming yet. Baby is bottle-fed at this time. - Problem List Review Problem List Initiated/Reviewed/Updated: Yes - Plan Plan:: Continue current care and prepare for discharge to home Patient was seen and evaluated by medical student (ALONZO DEL VALLE). I appreciate the opportunity to be involved in the care of this patient. <Neda Menezes - Last Filed: 01/09/20 08:35> - Patient Data Vital Signs - Most Recent: Last Vital Signs Temp 36.8 C 01/09/20 04:03 Pulse 112 H 01/09/20 07:00 Resp 16 01/09/20 07:00 BP 98/47 L 01/09/20 04:03 Pulse Ox 96 01/09/20 07:00 I&O - Last 24 Hours: Intake & Output 01/08/20 01/09/20 01/09/20 22:59 06:59 14:59 Intake Total 800 1000 Output Total 350 Balance 800 650 Lab Results - Last 24 Hours: Laboratory Results - last 24 hr 01/08/20 01/09/20 Range/Units 18:02 05:48 WBC 14.80 H (4.0-11.0) K/uL RBC 2.74 L (4.30-5.90) M/uL Hgb 6.4 L (12.0-16.0) g/dL Hct 21.1 L (36.0-46.0) % MCV 77.0 L (80.0-98.0) fL MCH 23.4 L (27.0-32.0) pg MCHC 30.3 L (31.0-37.0) g/dL RDW Std Deviation 46.5 (28.0-62.0) fl RDW Coeff of Jean Claude 17 H (11.0-15.0) % Plt Count 257 (150-400) K/uL MPV 9.70 (7.40-12.00) fL Nucleated RBC % 0.0 /100WBC Nucleated RBCs # 0 K/uL Cord ABG pH 7.207 (7.18-7.38) Cord ABG Base Excess -7 (-10--2) Cord VBG pH 7.268 (7.25-7.45) Cord VBG Base Excess -6 (-10--2) Med Orders - Current: Current Medications Bisacodyl (Dulcolax) 10 mg RECTAL ONETIME PRN PRN Reason: Constipation Carboprost Tromethamine (Hemabate Ds) 250 mcg IM ASDIRECTED PRN PRN Reason: Post Hemorrhage Diphenhydramine HCl (Benadryl) 25 mg IVPUSH Q6H PRN PRN Reason: Itching or Nausea Docusate Sodium (Colace) 100 mg PO BID [facility] Last Admin: 01/08/20 20:59 Dose: 100 mg Documented by: Emollient Ointment (Lansinoh Hpa) 0 gm TOP ASDIRECTED PRN PRN Reason: Sore Nipples Fentanyl (Sublimaze) 50 mcg IVPUSH Q5M PRN PRN Reason: Pain (severe 7-10) Stop: 01/09/20 18:30 Oxytocin/Sodium Chloride (Oxytocin 30 Unit/500 Ml-Ns) 30 unit in 500 mls @ 999 mls/hr IV TITRATE [facility] Tranexamic Acid 1,000 mg/ (Sodium Chloride) 110 mls @ 660 mls/hr IV ONETIME PRN PRN Reason: Bleeding Oxytocin/Sodium Chloride (Oxytocin 30 Unit/500 Ml-Ns) 30 unit in 500 mls @ 2 mls/hr IV TITRATE [facility]; Protocol Last Titration: 01/08/20 15:54 Dose: 10 munits/min, 10 mls/hr Documented by: Lactated Ringer's (Ringers, Lactated) 1,000 mls @ 150 mls/hr IV ASDIRECTED [facility] Last Admin: 01/08/20 11:33 Dose: 150 mls/hr Documented by: Lactated Ringer's (Ringers, Lactated) 1,000 mls @ 125 mls/hr IV ASDIRECTED [facility] Last Admin: 01/08/20 20:54 Dose: 125 mls/hr Documented by: Tranexamic Acid 1,000 mg/ (Sodium Chloride) 110 mls @ 660 mls/hr IV ONETIME PRN PRN Reason: Bleeding Ibuprofen (Motrin) 800 mg PO Q8H PRN PRN Reason: mild pain or fever Ketorolac Tromethamine (Toradol) 30 mg IVPUSH Q6H [facility] Stop: 01/09/20 19:01 Last Admin: 01/09/20 07:03 Dose: 30 mg Documented by: Methylergonovine Maleate (Methergine) 0.2 mg IM ASDIRECTED PRN PRN Reason: Post Hemorrhage Methylergonovine Maleate (Methergine) 0.2 mg IM ONETIME PRN PRN Reason: Excessive Vaginal Bleeding Misoprostol (Cytotec) 1,000 mcg RECTAL ONETIME PRN PRN Reason: excessive bleeding Nalbuphine HCl (Nubain) 2.5 mg IVPUSH Q3H PRN PRN Reason: Pruritis Stop: 01/09/20 18:30 Ondansetron HCl (Zofran) 4 mg IVPUSH Q4H PRN PRN Reason: Nausea/Vomiting Ondansetron HCl (Zofran) 4 mg IVPUSH Q4H PRN PRN Reason: Nausea/Vomiting Oxycodone/Acetaminophen (Percocet 325-5 Mg) 1 tab PO ONETIME PRN PRN Reason: Pain (moderate 4-6) Oxycodone/Acetaminophen (Percocet 325-5 Mg) 1 tab PO Q4H PRN PRN Reason: Pain (moderate 4-6) Oxycodone/Acetaminophen (Percocet 325-5 Mg) 2 tab PO Q4H PRN PRN Reason: Pain (moderate 4-6) Oxytocin (Pitocin) 10 unit IM ASDIRECTED PRN PRN Reason: Excessive Vaginal Bleeding Simethicone (Simethicone) 160 mg PO QID [facility] Last Admin: 01/09/20 06:12 Dose: 160 mg Documented by: Sodium Chloride (Normal Saline) 10 ml IV ASDIRECTED PRN PRN Reason: IV Use Sterile Water (Sterile Water For Irrigation) 1,000 ml IRR ASDIRECTED PRN PRN Reason: delivery Terbutaline Sulfate (Brethine) 0.25 mg SUBCUT ASDIRECTED PRN PRN Reason: Tacysystole Discontinued Medications Butorphanol Tartrate (Stadol) 1 mg IVPUSH Q1H PRN PRN Reason: Pain Last Admin: 01/08/20 10:00 Dose: 1 mg Documented by: Cefazolin Sodium (Ancef) Confirm Administered Dose 2 gm .ROUTE .STK-MED ONE Stop: 01/08/20 19:21 Citric Acid/Sodium Citrate (Bicitra Solution) 30 ml PO ONETIME ONE Stop: 01/08/20 17:34 Last Admin: 01/08/20 21:52 Dose: Not Given Documented by: Ephedrine Sulfate (Ephedrine Sulfate) Confirm Administered Dose 50 mg .ROUTE .STK-MED ONE Stop: 01/08/20 10:54 Ephedrine Sulfate (Ephedrine Sulfate) Confirm Administered Dose 50 mg .ROUTE .STK-MED ONE Stop: 01/08/20 18:28 Ampicillin Sodium 2 gm/ Sodium (Chloride) 100 mls @ 200 mls/hr IV ONETIME ONE Stop: 01/07/20 20:39 Last Admin: 01/07/20 20:40 Dose: 200 mls/hr Documented by: Ampicillin Sodium 1 gm/ Sodium (Chloride) 50 mls @ 100 mls/hr IV Q4H [facility] Last Admin: 01/08/20 16:50 Dose: 100 mls/hr Documented by: Fentanyl/Bupivacaine HCl (Fentanyl/Bupivacaine/Ns 2 Mcg-0.125% 250 Ml) Confirm Administered Dose 250 mls @ as directed .ROUTE .STK-MED ONE Stop: 01/08/20 10:15 Last Admin: 01/08/20 21:52 Dose: Not Given Documented by: Sodium Chloride (Normal Saline) Confirm Administered Dose 20 mls @ as directed .ROUTE .STK-MED ONE Stop: 01/08/20 10:54 Cefazolin Sodium/Dextrose 2 gm (/ Premix) 50 mls @ 100 mls/hr IV ONETIME ONE Stop: 01/08/20 18:02 Last Admin: 01/08/20 21:52 Dose: Not Given Documented by: Sodium Chloride (Normal Saline) Confirm Administered Dose 20 mls @ as directed .ROUTE .STK-MED ONE Stop: 01/08/20 17:46 Acetaminophen (Ofirmev) Confirm Administered Dose 100 mls @ as directed .ROUTE .STK-MED ONE Stop: 01/08/20 19:03 Lidocaine HCl (Xylocaine 1%) 50 ml INJECT ONETIME PRN PRN Reason: Laceration repair Misoprostol (Cytotec) 200 mcg PO ONETIME PRN PRN Reason: Post Hemorrhage Misoprostol (Cytotec) 25 mcg VAG ONETIME PRN PRN Reason: Cervical Ripening Last Admin: 01/07/20 20:40 Dose: 25 mcg Documented by: Misoprostol (Cytotec) 25 mcg VAG Q4H PRN PRN Reason: Cervical Ripening Last Admin: 01/08/20 00:34 Dose: 25 mcg Documented by: Morphine Sulfate (Duramorph Pf) Confirm Administered Dose 10 mg .ROUTE .STK-MED ONE Stop: 01/08/20 18:03 Nalbuphine HCl (Nubain) 10 mg IVPUSH Q1H PRN PRN Reason: Pain (severe 7-10) Ondansetron HCl (Zofran) Confirm Administered Dose 4 mg .ROUTE .STK-MED ONE Stop: 01/08/20 17:42 Oxytocin (Pitocin) Confirm Administered Dose 20 unit .ROUTE .STK-MED ONE Stop: 01/08/20 17:46 Sodium Chloride (Saline Flush) 10 ml FLUSH ASDIRECTED PRN PRN Reason: Keep Vein Open Sodium Chloride (Saline Flush) 2.5 ml FLUSH ASDIRECTED PRN PRN Reason: Keep Vein Open - Problem List & Annotations (1) delivery delivered SNOMED Code(s): 740397492 Code(s): O82 - ENCOUNTER FOR DELIVERY WITHOUT INDICATION Status: Acute Current Visit: Yes (2) Anemia affecting SNOMED Code(s): 42933756 Code(s): O99.019 - ANEMIA COMPLICATING , UNSPECIFIED TRIMESTER Status: Acute Current Visit: Yes - Problem List Review Problem List Initiated/Reviewed/Updated: Yes - My Orders Last 24 Hours: My Active Orders 01/08/20 Dinner Regular Diet [DIET] 01/08/20 19:02 Patient Status [ADT] Routine Ambulate [RC] PER UNIT ROUTINE Antiembolic Devices [RC] PER UNIT ROUTINE Communication Order [RC] PER UNIT ROUTINE Communication Order [RC] PER UNIT ROUTINE Communication Order [RC] Per Unit Routine May Shower [RC] ASDIRECTED Notify Provider Intake and Out [RC] ASDIRECTED Notify Provider Vital Signs [RC] ASDIRECTED RT Incentive Spirometry [RC] Q2HWA Vital Signs [RC] PER UNIT ROUTINE Acetaminophen/oxyCODONE [Percocet 325-5 MG] 1 tab PO Q4H PRN Acetaminophen/oxyCODONE [Percocet 325-5 MG] 2 tab PO Q4H PRN Lanolin [Lansinoh HPA] See Dose Instructions TOP ASDIRECTED PRN Methylergonovine [Methergine] 0.2 mg IM ONETIME PRN Ondansetron [Zofran] 4 mg IVPUSH Q4H PRN Oxytocin [Pitocin] 10 unit IM ASDIRECTED PRN Tranexamic Acid [Cyklokapron] 1,000 mg Sodium Chloride 0.9% [Normal Saline] 100 ml IV ONETIME bisacodyL [Dulcolax] 10 mg RECTAL ONETIME PRN diphenhydrAMINE [Benadryl] 25 mg IVPUSH Q6H PRN miSOPROStoL [Cytotec] 1,000 mcg RECTAL ONETIME PRN Abdominal Binder [OM.PC] Routine Assess Lochia [WOMSER] Per Unit Routine Assess Uterine Involution [WOMSER] Per Unit Routine Breast Pump [WOMSER] Per Unit Routine Heat Therapy [OM.PC] Routine Ice Therapy [OM.PC] Routine Peripheral IV Discontinue [OM.PC] Routine Sequential Compression Device [OM.PC] Per Unit Routine 01/08/20 19:15 Lactated Ringers [Ringers, Lactated] 1,000 ml IV ASDIRECTED 01/08/20 21:00 Docusate Sodium [Colace] 100 mg PO BID 01/09/20 00:00 Simethicone 160 mg PO QID 01/09/20 01:00 Ketorolac [Toradol] 30 mg IVPUSH Q6H 01/10/20 01:00 Ibuprofen [Motrin] 800 mg PO Q8H PRN - Assessment Assessment:: POD 1 status post Primary LTCS Anemia - Plan Plan:: Patient able to sleep--feeling better this morning. She did ambulate halls--legs felt heavy. Quite tired. Discussed her severe anemia (9 prior to delivery, 6.4 this am). Given this we discussed interventions in form of blood transfusion or iv iron. Patient opts for blood transfusion. Will plan that for today and reevaluated in morning. Otherwise, continue postoperative cares. Encouraged patient to breastfeed today--discussed typical appearance of clostrum.
--- NOTE | 2020-01-09 07:37 | PCM48HPAN ---
Post Anesthesia Note - EVALUATION WITHIN 48HRS OF ANESTHETIC Vital Signs in Normal Range: Yes Patient Participated in Evaluation: Yes Respiratory Function Stable: Yes Airway Patent: Yes Cardiovascular Function Stable: Yes Hydration Status Stable: Yes Pain Control Satisfactory: Yes Nausea and Vomiting Control Satisfactory: Yes Mental Status Recovered: Yes Vital Signs: Last Vital Signs Temp 36.8 C 01/09/20 04:03 Pulse 112 H 01/09/20 07:00 Resp 16 01/09/20 07:00 BP 98/47 L 01/09/20 04:03 Pulse Ox 96 01/09/20 07:00 - COMMENTS/OBSERVATIONS Free Text/Narrative:: No anesthesia complaints or complications noted.
[2020-01-09] MEDS: Docusate Sodium 100 MG Cap PO SCH ×2 (13:05→21:30)
[2020-01-09] MEDS: Ketorolac 15 MG/ML SDV ONE (21:26)
[2020-01-09] MEDS ORDERED: Ketorolac 30 MG/ML SDV ONE (21:33)
[2020-01-10] MEDS ORDERED: Ibuprofen 800 MG Tab PO PRN (01:00)
[2020-01-10] MEDS: Acetaminophen/oxyCODONE 325-5 MG Tab PO PRN ×3 (02:49→15:21)
[2020-01-10] MEDS: Simethicone 80 MG Tab.Chew PO SCH ×2 (07:08→12:42)
--- NOTE | 2020-01-10 07:49 | PCM.PNPP ---
- General Info Date of Service: 01/10/20 Functional Status: Reports: Pain Controlled, Tolerating Diet, Ambulating - Review of Systems General: Reports: Fatigue. Denies: Fever, Weakness Pulmonary: Denies: Shortness of Breath Cardiovascular: Denies: Chest Pain, Palpitations, Lightheadedness Gastrointestinal: Reports: Abdominal Pain (mild near incisional site). Denies: Nausea, Vomiting Genitourinary: Denies: Dysuria, Flank Pain Musculoskeletal: Reports: No Symptoms Skin: Reports: No Symptoms Neurological: Reports: No Symptoms Psychiatric: Reports: No Symptoms - General Info Date of Service: 01/10/20 - Patient Data Vital Signs - Most Recent: Last Vital Signs Temp 35.8 C L 01/10/20 00:18 Pulse 99 01/10/20 00:18 Resp 14 01/10/20 00:18 BP 115/60 01/10/20 00:18 Pulse Ox 98 01/10/20 00:18 Weight - Most Recent: 86.908 kg I&O - Last 24 Hours: Intake & Output 01/09/20 01/10/20 01/10/20 22:59 06:59 14:59 Intake Total 1050 Balance 1050 Lab Results - Last 24 Hours: Laboratory Results - last 24 hr 01/07/20 01/10/20 Range/Units 19:45 05:37 WBC 15.27 H (4.0-11.0) K/uL RBC 3.66 L (4.30-5.90) M/uL Hgb 9.2 L (12.0-16.0) g/dL Hct 29.0 L (36.0-46.0) % MCV 79.2 L (80.0-98.0) fL MCH 25.1 L (27.0-32.0) pg MCHC 31.7 (31.0-37.0) g/dL RDW Std Deviation 47.9 (28.0-62.0) fl RDW Coeff of Jean Claude 17 H (11.0-15.0) % Plt Count 262 (150-400) K/uL MPV 9.90 (7.40-12.00) fL Nucleated RBC % 0.0 /100WBC Nucleated RBCs # 0 K/uL Blood Type A POSITIVE Antibody Screen NEGATIVE Crossmatch See Detail Med Orders - Current: Current Medications Bisacodyl (Dulcolax) 10 mg RECTAL ONETIME PRN PRN Reason: Constipation Carboprost Tromethamine (Hemabate Ds) 250 mcg IM ASDIRECTED PRN PRN Reason: Post Hemorrhage Diphenhydramine HCl (Benadryl) 25 mg IVPUSH Q6H PRN PRN Reason: Itching or Nausea Docusate Sodium (Colace) 100 mg PO BID [facility] Last Admin: 01/09/20 21:30 Dose: 100 mg Documented by: Emollient Ointment (Lansinoh Hpa) 0 gm TOP ASDIRECTED PRN PRN Reason: Sore Nipples Oxytocin/Sodium Chloride (Oxytocin 30 Unit/500 Ml-Ns) 30 unit in 500 mls @ 999 mls/hr IV TITRATE [facility] Tranexamic Acid 1,000 mg/ (Sodium Chloride) 110 mls @ 660 mls/hr IV ONETIME PRN PRN Reason: Bleeding Oxytocin/Sodium Chloride (Oxytocin 30 Unit/500 Ml-Ns) 30 unit in 500 mls @ 2 mls/hr IV TITRATE [facility]; Protocol Last Titration: 01/08/20 15:54 Dose: 10 munits/min, 10 mls/hr Documented by: Lactated Ringer's (Ringers, Lactated) 1,000 mls @ 150 mls/hr IV ASDIRECTED [facility] Last Admin: 01/08/20 11:33 Dose: 150 mls/hr Documented by: Lactated Ringer's (Ringers, Lactated) 1,000 mls @ 125 mls/hr IV ASDIRECTED [facility] Last Admin: 01/08/20 20:54 Dose: 125 mls/hr Documented by: Tranexamic Acid 1,000 mg/ (Sodium Chloride) 110 mls @ 660 mls/hr IV ONETIME PRN PRN Reason: Bleeding Ibuprofen (Motrin) 800 mg PO Q8H PRN PRN Reason: mild pain or fever Methylergonovine Maleate (Methergine) 0.2 mg IM ASDIRECTED PRN PRN Reason: Post Hemorrhage Methylergonovine Maleate (Methergine) 0.2 mg IM ONETIME PRN PRN Reason: Excessive Vaginal Bleeding Misoprostol (Cytotec) 1,000 mcg RECTAL ONETIME PRN PRN Reason: excessive bleeding Ondansetron HCl (Zofran) 4 mg IVPUSH Q4H PRN PRN Reason: Nausea/Vomiting Ondansetron HCl (Zofran) 4 mg IVPUSH Q4H PRN PRN Reason: Nausea/Vomiting Oxycodone/Acetaminophen (Percocet 325-5 Mg) 1 tab PO ONETIME PRN PRN Reason: Pain (moderate 4-6) Oxycodone/Acetaminophen (Percocet 325-5 Mg) 1 tab PO Q4H PRN PRN Reason: Pain (moderate 4-6) Last Admin: 01/10/20 02:49 Dose: 1 tab Documented by: Oxycodone/Acetaminophen (Percocet 325-5 Mg) 2 tab PO Q4H PRN PRN Reason: Pain (moderate 4-6) Oxytocin (Pitocin) 10 unit IM ASDIRECTED PRN PRN Reason: Excessive Vaginal Bleeding Simethicone (Simethicone) 160 mg PO QID [facility] Last Admin: 01/10/20 07:08 Dose: 160 mg Documented by: Sodium Chloride (Normal Saline) 10 ml IV ASDIRECTED PRN PRN Reason: IV Use Sterile Water (Sterile Water For Irrigation) 1,000 ml IRR ASDIRECTED PRN PRN Reason: delivery Terbutaline Sulfate (Brethine) 0.25 mg SUBCUT ASDIRECTED PRN PRN Reason: Tacysystole Discontinued Medications Butorphanol Tartrate (Stadol) 1 mg IVPUSH Q1H PRN PRN Reason: Pain Last Admin: 01/08/20 10:00 Dose: 1 mg Documented by: Cefazolin Sodium (Ancef) Confirm Administered Dose 2 gm .ROUTE .STK-MED ONE Stop: 01/08/20 19:21 Citric Acid/Sodium Citrate (Bicitra Solution) 30 ml PO ONETIME ONE Stop: 01/08/20 17:34 Last Admin: 01/08/20 21:52 Dose: Not Given Documented by: Ephedrine Sulfate (Ephedrine Sulfate) Confirm Administered Dose 50 mg .ROUTE .STK-MED ONE Stop: 01/08/20 10:54 Ephedrine Sulfate (Ephedrine Sulfate) Confirm Administered Dose 50 mg .ROUTE .STK-MED ONE Stop: 01/08/20 18:28 Fentanyl (Sublimaze) 50 mcg IVPUSH Q5M PRN PRN Reason: Pain (severe 7-10) Stop: 01/09/20 18:30 Ampicillin Sodium 2 gm/ Sodium (Chloride) 100 mls @ 200 mls/hr IV ONETIME ONE Stop: 01/07/20 20:39 Last Admin: 01/07/20 20:40 Dose: 200 mls/hr Documented by: Ampicillin Sodium 1 gm/ Sodium (Chloride) 50 mls @ 100 mls/hr IV Q4H [facility] Last Admin: 01/08/20 16:50 Dose: 100 mls/hr Documented by: Fentanyl/Bupivacaine HCl (Fentanyl/Bupivacaine/Ns 2 Mcg-0.125% 250 Ml) Confirm Administered Dose 250 mls @ as directed .ROUTE .STK-MED ONE Stop: 01/08/20 10:15 Last Admin: 01/08/20 21:52 Dose: Not Given Documented by: Sodium Chloride (Normal Saline) Confirm Administered Dose 20 mls @ as directed .ROUTE .STK-MED ONE Stop: 01/08/20 10:54 Cefazolin Sodium/Dextrose 2 gm (/ Premix) 50 mls @ 100 mls/hr IV ONETIME ONE Stop: 01/08/20 18:02 Last Admin: 01/08/20 21:52 Dose: Not Given Documented by: Sodium Chloride (Normal Saline) Confirm Administered Dose 20 mls @ as directed .ROUTE .STK-MED ONE Stop: 01/08/20 17:46 Acetaminophen (Ofirmev) Confirm Administered Dose 100 mls @ as directed .ROUTE .STK-MED ONE Stop: 01/08/20 19:03 Ketorolac Tromethamine (Toradol) 30 mg IVPUSH Q6H [facility] Stop: 01/09/20 19:01 Last Admin: 01/09/20 21:29 Dose: 30 mg Documented by: Ketorolac Tromethamine (Toradol) Confirm Administered Dose 15 mg .ROUTE .STK-MED ONE Stop: 01/09/20 21:24 Ketorolac Tromethamine (Toradol) Confirm Administered Dose 30 mg .ROUTE .STK-MED ONE Stop: 01/09/20 21:34 Lidocaine HCl (Xylocaine 1%) 50 ml INJECT ONETIME PRN PRN Reason: Laceration repair Misoprostol (Cytotec) 200 mcg PO ONETIME PRN PRN Reason: Post Hemorrhage Misoprostol (Cytotec) 25 mcg VAG ONETIME PRN PRN Reason: Cervical Ripening Last Admin: 01/07/20 20:40 Dose: 25 mcg Documented by: Misoprostol (Cytotec) 25 mcg VAG Q4H PRN PRN Reason: Cervical Ripening Last Admin: 01/08/20 00:34 Dose: 25 mcg Documented by: Morphine Sulfate (Duramorph Pf) Confirm Administered Dose 10 mg .ROUTE .STK-MED ONE Stop: 01/08/20 18:03 Nalbuphine HCl (Nubain) 10 mg IVPUSH Q1H PRN PRN Reason: Pain (severe 7-10) Nalbuphine HCl (Nubain) 2.5 mg IVPUSH Q3H PRN PRN Reason: Pruritis Stop: 01/09/20 18:30 Ondansetron HCl (Zofran) Confirm Administered Dose 4 mg .ROUTE .STK-MED ONE Stop: 01/08/20 17:42 Oxytocin (Pitocin) Confirm Administered Dose 20 unit .ROUTE .STK-MED ONE Stop: 01/08/20 17:46 Sodium Chloride (Saline Flush) 10 ml FLUSH ASDIRECTED PRN PRN Reason: Keep Vein Open Sodium Chloride (Saline Flush) 2.5 ml FLUSH ASDIRECTED PRN PRN Reason: Keep Vein Open - Infant Interaction Infant Disposition, : to Nursery Infant Feeding: Bottle Fed Infant Support Person: , Significant Other - Recovery Exam Fundal Tone: Firm Fundal Level: 2 Fingerbreadths Below Umbilicus Fundal Placement: Midline Lochia Amount: Scant Lochia Color: Rubra/Red Perineum Description: Intact, Minimal Bruising/Swelling Episiotomy/Laceration: None Bladder Status: Indwelling Catheter in Place Urinary Elimination: Indwelling Catheter - Exam General: Alert, Oriented Lungs: Normal Respiratory Effort Cardiovascular: Regular Rate, Regular Rhythm GI/Abdominal Exam: Normal Bowel Sounds, Soft Extremities: Pedal Edema (1+). No: Prashant's Sign Skin: Warm, Dry, Intact Wound/Incisions: Healing Well, No Drainage. No: Erythema Neurological: No New Focal Deficit Psy/Mental Status: Alert, Normal Affect, Normal Mood - Problem List & Annotations (1) delivery delivered SNOMED Code(s): 675315788 Code(s): O82 - ENCOUNTER FOR DELIVERY WITHOUT INDICATION Status: Acute Current Visit: Yes (2) Anemia affecting SNOMED Code(s): 07797257 Code(s): O99.019 - ANEMIA COMPLICATING , UNSPECIFIED TRIMESTER Status: Acute Current Visit: Yes - Problem List Review Problem List Initiated/Reviewed/Updated: Yes - My Orders Last 24 Hours: My Active Orders 01/09/20 08:37 Transfuse Red Blood Cells [COMM] Stat 01/10/20 01:00 Ibuprofen [Motrin] 800 mg PO Q8H PRN 01/10/20 07:46 Ready for Discharge [RC] PER UNIT ROUTINE - Assessment Assessment:: POD 2 status post Primary LTCS Anemia--s/p 3U PRBCs - Plan Plan:: Doing well overall, [place] just removed during the night--will monitor for ability to void. VS are stable. Hemoglobin is 9.2--agrees to oral iron therapy in PP periods. Overall VS and labs reassuring. Allow discharge to home later today. Discharge instructions reviewed. Infection and bleeding warnings reviewed. Follow up at [facility] 2 and 6 weeks. Plan CBC PP.
[2020-01-10] MEDS: Ketorolac 15 MG/ML SDV ONE (07:58)
[2020-01-10] MEDS: Docusate Sodium 100 MG Cap PO SCH (09:59)
[2020-01-10 17:57] VITALS: BP 120/68; PULSE 95
== END 2020-01-10 16:30 | disposition home or self-care (01) | DRG 540 ==
LOC: MW.OBCHECK 18:48 → MW.OB 18:50 → MW.OBCHECK 20:10 → MW.OB 20:10 → OBSVTOIN 01-08 18:07 → MW.OB 01-08 21:05
PROVIDERS: ADMIT Obstetrics & Gynecology; ATTEND Obstetrics & Gynecology
PROC: 10D00Z1 Extraction of Products of Conception, Low, Open Approach (ICD-10-PCS; principal; 2020-01-08)
PROC: 10907ZC Drainage of Amniotic Fluid, Therapeutic from Products of Conception, Via Natural or Artificial Opening (ICD-10-PCS; 2020-01-08)
PROC: 3E0P7VZ Introduction of Hormone into Female Reproductive, Via Natural or Artificial Opening (ICD-10-PCS; 2020-01-08)
PROC: 3E0R3BZ Introduction of Anesthetic Agent into Spinal Canal, Percutaneous Approach (ICD-10-PCS; 2020-01-08)
PROC: 30233N1 Transfusion of Nonautologous Red Blood Cells into Peripheral Vein, Percutaneous Approach (ICD-10-PCS; 2020-01-08)
DX: O99.02 Anemia complicating childbirth (principal); O99.824 Streptococcus B carrier state complicating childbirth; O62.1 Secondary uterine inertia; D62 Acute posthemorrhagic anemia; Z20.828 Contact with and (suspected) exposure to other viral communicable diseases; Z37.0 Single live birth; Z3A.39 39 weeks gestation of pregnancy
CPT/HCPCS: 01967; 01968; 36415; 36430; 51702; 59025; 82803; 85027; 86592; 86850; 86900; 86901; 86920; 86921; 86922; 88307; A9270-GY; J0131; J0290; J0595; J0690; J1885; J2270; J2405; J2590; J3010; J7050; J7120; P9016; U0002

== ENCOUNTER 2022-03-01 15:50 | Inpatient (IN) | payer OTHER ==
[2022-03-01 16:56] LABS: CARBON DIOXIDE,CO2 23.8 mmol/L (21.0-32.0); POTASSIUM,K 3.9 mmol/L (3.5-5.1)
[2022-03-01] MEDS ORDERED: Dexmedetomidine 200 MCG/2 ML SDV ONE (18:27)
[2022-03-01] MEDS ORDERED: Ondansetron 4 MG/2 ML SDV ONE (18:27)
[2022-03-01] MEDS ORDERED: Oxytocin 10 Units/1 ML SDV ONE (18:27)
[2022-03-01] MEDS ORDERED: Phenylephrine HCl In 0.9% NaCl 1 MG/10 ML Vial ONE (18:27)
[2022-03-01] MEDS ORDERED: Dexamethasone 4 MG/ML 5 ML MDV ONE (18:27)
[2022-03-01] MEDS ORDERED: Lidocaine 2% 5 ML SDV ONE (18:27)
[2022-03-01] MEDS ORDERED: Ropivacaine 0.5% 5 MG/ML 30 ML SDV ONE (18:27)
[2022-03-01] MEDS ORDERED: Sodium Chloride 0.9% 10 ML Syringe FLUSH PRN (18:28)
[2022-03-01] MEDS ORDERED: ceFAZolin 2 GM in Premix Bag 1 BAG IV ONE (18:28)
[2022-03-01] MEDS ORDERED: Morphine PF 10 MG/10 ML SDV ONE (18:28)
[2022-03-01] MEDS ORDERED: Water For Injection, Sterile 40 ML ONE (18:28)
[2022-03-01] MEDS ORDERED: Citric Acid/Sodium Citrate Solution 30 ML Cup PO ONE (18:28)
[2022-03-01] MEDS ORDERED: ceFAZolin 1 GM Vial ONE (18:28)
[2022-03-01] MEDS ORDERED: Sodium Chloride 0.9% 2.5 ML Syringe FLUSH PRN (18:28)
[2022-03-01] MEDS ORDERED: Sodium Chloride 0.9% 20 ML SDV IV PRN (18:28)
[2022-03-01] MEDS ORDERED: Oxytocin/0.9 % Sodium Chloride 30 UNIT/500 ML BAG IV SCH (18:30)
[2022-03-01] MEDS ORDERED: Lactated Ringers 1,000 ML IV SCH ×2 (18:30→20:45)
[2022-03-01] MEDS ORDERED: Oxytocin/0.9 % Sodium Chloride 30 UNIT/500 ML BAG ONE (19:19)
[2022-03-01] MEDS ORDERED: Bisacodyl 10 MG Supp RECTAL PRN (20:36)
[2022-03-01] MEDS ORDERED: Lanolin 100% Cream 7 GM Tube TOP PRN (20:36)
[2022-03-01] MEDS ORDERED: Misoprostol 200 MCG Tab RECTAL PRN (20:36)
[2022-03-01] MEDS ORDERED: Oxytocin 10 Units/1 ML SDV IM PRN (20:36)
[2022-03-01] MEDS ORDERED: Acetaminophen/oxyCODONE 325-5 MG Tab PO PRN ×2 (20:36)
[2022-03-01] MEDS ORDERED: Ibuprofen 800 MG Tab PO PRN (20:36)
[2022-03-01] MEDS ORDERED: Tranexamic Acid 1,000 MG in Sodium Chloride 0.9% 100 ML IV PRN (20:36)
[2022-03-01] MEDS ORDERED: Hydrocortisone 2.5% Crm 30 GM Tube TOP PRN (20:36)
[2022-03-01] MEDS ORDERED: Ondansetron 4 MG/2 ML SDV IVPUSH PRN ×2 (20:36→21:03)
[2022-03-01] MEDS ORDERED: Methylergonovine 0.2 MG/1 ML Amp IM PRN (20:36)
[2022-03-01] MEDS ORDERED: diphenhydrAMINE 50 MG/ML SDV IVPUSH PRN ×2 (20:36→21:03)
[2022-03-01] MEDS: Docusate Sodium 100 MG Cap PO SCH (21:00)
[2022-03-01] MEDS ORDERED: fentaNYL 100 MCG/2 ML SDV IVPUSH PRN (21:03)
[2022-03-01] MEDS ORDERED: Naloxone 0.4 MG/ML SDV IVPUSH PRN (21:03)
[2022-03-01] MEDS ORDERED: Nalbuphine HCl 10 MG/ 1ML Amp IVPUSH PRN (21:04)
[2022-03-01] MEDS ORDERED: ePHEDrine 50 MG/ML SDV IVPUSH PRN (21:05)
[2022-03-01] MEDS ORDERED: Phenylephrine HCl In 0.9% NaCl 1 MG/10 ML Vial IVPUSH SCH (21:15)
[2022-03-01] MEDS: Ketorolac 30 MG/ML SDV IVPUSH SCH (23:30)
[2022-03-01] MEDS: Simethicone 80 MG Tab.Chew PO SCH (23:30)
[2022-03-02] MEDS: Simethicone 80 MG Tab.Chew PO SCH ×3 (06:12→17:58)
[2022-03-02] MEDS: Ketorolac 30 MG/ML SDV IVPUSH SCH ×3 (06:13→20:10)
[2022-03-02] MEDS: Docusate Sodium 100 MG Cap PO SCH ×2 (09:15→21:00)
[2022-03-03] MEDS ORDERED: Ketorolac 30 MG/ML SDV ONE (04:12)
[2022-03-03] MEDS: Ketorolac 30 MG/ML SDV IVPUSH SCH (04:14)
[2022-03-03] MEDS: Simethicone 80 MG Tab.Chew PO SCH ×2 (06:40)
[2022-03-03] MEDS: Docusate Sodium 100 MG Cap PO SCH (09:19)
[2022-03-03 13:15] VITALS: BP 135/82; PULSE 102
== END 2022-03-03 12:45 | disposition home or self-care (01) | DRG 788 ==
LOC: MW.OB 15:50 → MW.OBCHECK 15:50 → MW.OB 19:50 → MW.OBCHECK 19:50 → OBSVTOIN 19:54 → MW.OB 23:44
PROVIDERS: ADMIT Obstetrics & Gynecology; ATTEND Obstetrics & Gynecology
PROC: 10D00Z1 Extraction of Products of Conception, Low, Open Approach (ICD-10-PCS; principal; 2022-03-01)
DX: O14.94 Unspecified pre-eclampsia, complicating childbirth (principal); O34.211 Maternal care for low transverse scar from previous cesarean delivery; Z37.0 Single live birth; O99.214 Obesity complicating childbirth; Z86.16 Personal history of COVID-19; Z87.891 Personal history of nicotine dependence; Z3A.38 38 weeks gestation of pregnancy; Z20.822 Contact with and (suspected) exposure to COVID-19
CPT/HCPCS: 01961; 36415; 51702; 59025; 64488; 80053; 82803; 84550; 85014; 85018; 85027; 86592; 86850; 86900; 86901; A9270-GY; J0690; J1100; J1885; J2274; J2405; J2590; J2795; J7120; U0002

== ENCOUNTER 2023-11-07 07:40 | Inpatient (IN) | payer BC, MEDICAID ==
[~2023-11-07 07:40] MED LIST: Albuterol 0.083% 2.5 MG/3 ML Neb Soln NEB PRN; HYDROmorphone 1 MG/ML Syringe IVPUSH PRN; Metoclopramide 10 MG/2 ML SDV IVPUSH PRN; Morphine 2 MG/ML SYRINGE IVPUSH PRN; Nalbuphine 10 MG/1 ML Vial IVPUSH PRN; Naloxone 0.4 MG/ML SDV IVPUSH PRN; Ondansetron 4 MG/2 ML SDV IVPUSH PRN; diphenhydrAMINE 50 MG/ML SDV IVPUSH PRN; droPERidol 5 MG/2 ML SDV IVPUSH PRN; ePHEDrine 50 MG/ML SDV IVPUSH PRN; fentaNYL 100 MCG/2 ML SDV IVPUSH PRN; fentaNYL 50 MCG/ML SDV IVPUSH PRN
[2023-11-07] MEDS ORDERED: Water For Injection, Sterile 20 ML ONE (07:48)
[2023-11-07] MEDS ORDERED: Phenylephrine 1% 10 MG/ML SDV ONE (07:50)
[2023-11-07] MEDS ORDERED: dexmedeTOMIDine HCl 200 MCG/2 ML SDV ONE (07:50)
[2023-11-07] MEDS ORDERED: ePHEDrine 50 MG/ML SDV ONE (07:50)
[2023-11-07] MEDS ORDERED: Ondansetron 4 MG/2 ML SDV ONE (07:50)
[2023-11-07] MEDS ORDERED: Ropivacaine 0.5% 5 MG/ML 30 ML SDV ONE (07:50)
[2023-11-07] MEDS ORDERED: Oxytocin 10 Units/1 ML SDV ONE ×2 (07:50→11:17)
[2023-11-07] MEDS ORDERED: Dexamethasone 4 MG/ML 5 ML MDV ONE (07:50)
[2023-11-07] MEDS ORDERED: ceFAZolin 2 GM Vial ONE (07:54)
[2023-11-07] MEDS ORDERED: fentaNYL 100 MCG/2 ML SDV ONE (07:54)
[2023-11-07] MEDS: Lactated Ringers 1,000 ML IV SCH (07:55)
[2023-11-07] MEDS ORDERED: Morphine PF 10 MG/10 ML SDV ONE (07:55)
[2023-11-07] MEDS ORDERED: Tranexamic Acid 1,000 MG/10 ML Vial ONE (07:57)
[2023-11-07] MEDS ORDERED: Sodium Chloride 0.9% 20 ML SDV IV PRN (08:09)
[2023-11-07] MEDS ORDERED: Sodium Chloride 0.9% 2.5 ML Syringe FLUSH PRN (08:09)
[2023-11-07] MEDS ORDERED: Oxytocin/0.9 % Sodium Chloride 30 UNIT/500 ML BAG IV SCH (08:15)
[2023-11-07 08:23] LABS: HEMOGLOBIN 11.6 g/dL (12.0-16.0); MEAN CORPUSCULAR HEMOGLOBIN 26.5 pg (28.0-32.0); MEAN CORPUSCULAR HGB CONC 33.1 g/dL (32.0-36.0); MEAN CORPUSCULAR VOLUME 79.9 fL (83.0-99.0); MEAN PLATELET VOLUME 10.1 fL (9.4-12.3); PLATELET COUNT,PLT 253 K/uL (150-400); RED BLOOD CELL COUNT 4.38 M/uL (4.10-5.30); WHITE BLOOD CELL COUNT,WBC 13.89 K/uL (3.9-11.3)
[2023-11-07] MEDS: Citric Acid/Sodium Citrate Solution 30 ML Cup PO ONE (11:17)
[2023-11-07] MEDS: ceFAZolin 2 GM in Sodium Chloride 0.9% 50 ML IV ONE (11:17)
[2023-11-07] MEDS: Potassium Chloride 10 MEQ in Premix Bag 1 BAG IV SCH ×3 (11:17→20:53)
[2023-11-07] MEDS ORDERED: Methylergonovine 0.2 MG/1 ML Amp IM ONE (11:32)
[2023-11-07] MEDS ORDERED: Carboprost Tromethamine 250 MCG/1 mL Vial IM PRN (11:32)
[2023-11-07] MEDS ORDERED: Lanolin 100% Cream 7 GM Tube TOP PRN (11:32)
[2023-11-07] MEDS ORDERED: oxyCODONE 5 MG Tab PO PRN ×2 (11:32)
[2023-11-07] MEDS ORDERED: Neostigmine Methylsulfate 10 MG/10 ML MDV ONE (11:37)
[2023-11-07] MEDS: Potassium Chloride 20 MEQ Tab.ER PO ONE (12:23)
[2023-11-07] MEDS: Ketorolac 30 MG/ML SDV IVPUSH SCH (12:31)
[2023-11-07] MEDS: Acetaminophen 1,000 MG in Premix Bag 1 BAG IV SCH (14:19)
[2023-11-07 15:50] LABS: PH,UMBILICAL ARTERIAL 7.237 (7.18-7.38); PH,UMBILICAL VENOUS 7.317 (7.25-7.45)
[2023-11-07] MEDS: Dextrose 5%-Lact Ringers w/KCl 1,000 ML IV SCH (19:15)
[2023-11-07] MEDS: Ondansetron 4 MG/2 ML SDV IVPUSH PRN (20:07)
[2023-11-07] MEDS: Docusate Sodium 100 MG Cap PO SCH (20:10)
[2023-11-07] MEDS ORDERED: Potassium Chloride 100 ML IV ONE (20:22)
[2023-11-07] MEDS: Scopalamine 1mg/3day Transdermal Patch TOP ONE (20:33)
[2023-11-07] MEDS ORDERED: Docusate Sodium 250 MG Cap PO SCH (21:00)
[2023-11-07] MEDS: Sodium Chloride 0.9% 10 ML Syringe FLUSH PRN (23:12)
[2023-11-08 05:31] LABS: BASOPHILS ABSOLUTE AUTO 0.01 K/uL (0.00-0.20); BASOPHILS PERCENT AUTO 0.1 % (0.0-1.0); HEMOGLOBIN 9.1 g/dL (12.0-16.0); IMMATURE GRAN ABSOLUTE AUTO 0.11 K/uL (0.00-0.05); IMMATURE GRAN PERCENT AUTO 0.6 % (0.0-0.4); LYMPHOCYTES ABSOLUTE AUTO 1.39 K/uL (1.00-4.80); LYMPHOCYTES PERCENT AUTO 7.7 % (24.0-44.0); MEAN CORPUSCULAR HEMOGLOBIN 26.1 pg (28.0-32.0); MEAN CORPUSCULAR HGB CONC 32.5 g/dL (32.0-36.0); MEAN CORPUSCULAR VOLUME 80.5 fL (83.0-99.0); MEAN PLATELET VOLUME 10.4 fL (9.4-12.3); NEUTROPHILS ABSOLUTE AUTO 15.74 K/uL (1.80-7.70); NEUTROPHILS PERCENT AUTO 86.6 % (41.0-71.0); PLATELET COUNT,PLT 213 K/uL (150-400); RED BLOOD CELL COUNT 3.48 M/uL (4.10-5.30); WHITE BLOOD CELL COUNT,WBC 18.15 K/uL (3.9-11.3)
[2023-11-08 05:51] LABS: CALCIUM 7.8 mg/dL (8.5-10.1); CARBON DIOXIDE,CO2 24.7 mmol/L (21.0-32.0); CREATININE 0.7 mg/dL (0.6-1.0); EST CRCL DRUG DOSING (CG) 97.09 mL/min; POTASSIUM,K 4.2 mmol/L (3.5-5.1)
[2023-11-08] MEDS: Ibuprofen 800 MG Tab PO PRN (12:44)
[2023-11-08] MEDS: Acetaminophen/oxyCODONE 325-5 MG Tab PO PRN (14:53)
[2023-11-08] MEDS: Acetaminophen 500 MG Tab PO PRN (20:30)
[2023-11-09] MEDS: Simethicone 80 MG Tab.Chew PO PRN (08:54)
[2023-11-09 17:54] VITALS: PULSE 97
[2023-11-09 20:05] VITALS: BP 140/87
== END 2023-11-09 20:19 | disposition home or self-care (01) | DRG 540 ==
LOC: MW.OB 07:40
PROVIDERS: ADMIT Obstetrics & Gynecology; ATTEND Obstetrics & Gynecology
PROC: 10D00Z1 Extraction of Products of Conception, Low, Open Approach (ICD-10-PCS; principal; 2023-11-07 10:15)
DX: O13.4 Gestational [pregnancy-induced] hypertension without significant proteinuria, complicating childbirth (principal); Z37.0 Single live birth; O34.211 Maternal care for low transverse scar from previous cesarean delivery; O99.214 Obesity complicating childbirth; Z3A.37 37 weeks gestation of pregnancy
CPT/HCPCS: 01961; 36415; 59025; 64488; 80048; 82803; 85025; 85027; 86592; 86850; 86900; 86901; A9270-GY; J0131; J0690; J1100; J1885; J2274; J2371; J2405; J2590; J2710; J2795; J3010; J3480; J3490; J7120; J7121